=== PATIENT | male | born 1980 | race Caucasian/White ===

== ENCOUNTER 2020-08-22 11:34 | Emergency (ER) | payer OTHER, SELFPAY ==
--- NOTE | ~2020-08-22 | XR_ITS ---
EXAMINATION: XR chest 2V DATE: 08/22/2020 12:14 INDICATION: Congestion and wheezing. TECHNIQUE: Frontal and lateral views of the chest were obtained. COMPARISON: None. FINDINGS: The chest demonstrates clear lungs without pneumonia, pleural effusion, or pneumothorax. Th e heart size is normal. There is mild chronic anterior wedging of multiple thoracic vertebral bodies. IMPRESSION: 1. No acute cardiopulmonary disease. Reviewed, dictated and finalized at location A.
[2020-08-22 11:47] VITALS: BP 127/75; PULSE 85; RESP 16; TEMP 36.4; O2SAT 97
--- NOTE | 2020-08-22 11:57 | ED.URI ---
HPI - URI/Sore Throat General Chief Complaint: Upper Respiratory Infection Stated Complaint: Congestion,Headache Source: patient and RN notes reviewed Limitations: no limitations History of Present Illness HPI Narrative: The patient who is a smoker/reformed drinker with RAD, presents with upper respiratory symptoms. Patient states he has a 1 week history of myalgias with headache, loose stools diarrhea x5, congestion, froggy voice and cough with occasional wheeze. He is unvaccinated, no loss of taste/smell, vomiting, CP, rash, S OB no fever. Symptoms are mild, unrelieved with Related Data Home Medications Medication Instructions Recorded Confirmed albuterol sulfate 2 inh INHALATION DAILY 08/22/20 08/22/20 budesonide-formoterol [Symbicort] 1 inh INHALATION DAILY 08/22/20 08/22/20 lisinopril 40 mg PO DAILY 08/22/20 08/22/20 oxcarbazepine 300 mg PO DAILY 08/22/20 08/22/20 sertraline 50 mg PO DAILY 08/22/20 08/22/20 Allergies Allergy/AdvReac Type Severity Reaction Status Date / Time codeine Allergy Mild Itching Verified 08/22/20 11:36 Review of Systems Review of Systems: Narrative: General/Constitutional: No weight loss,fever Eyes: N0: Redness,discharge Ears/Nose/Throat: No: Epistaxis,ear discharge Respiratory: Denies: Hemoptysis Gastrointestinal: No Vomiting, Bleeding-rectal Skin: No Lumps, eruption Neurologic: No Focal Weakness,Sz Hematologic: Denies: Petechiae/Purpura Psychiatric: No: Suicida ideationl All Other Systems: Reviewed and Negative PMFSH Comments At time of signature, agree with nursing past medical, surgical, social and family history. There is no relevant family history pertinent to the presenting complaint Exam Narrative: Exam Narrative: General Appearance: Well appearing, Well nourished EYE: PERRLA, Conjunctiva clear Ears: Auditory canal normal, TM normal Nose: Rhinorrhea, Mucousal erythema Mouth/Throat: MM moist, Uvula midline, Pharyngeal erythema Neck: Supple, No adenopathy Respiratory: No respiratory distress, Breath sounds equal, scattered wheezing Cardiovascular: RRR, No JVD Musculoskeletal: Non tender, Normal strength Skin: Warm, Dry Neurological: A&O x3, CN II-XII intact Psychiatric: Normal mood, Normal affect Course Vital Signs Vital signs: Vital Signs Temperature 97.6 F 08/22/20 11:47 Pulse Rate 85 08/22/20 11:47 Respiratory Rate 16 08/22/20 11:47 Blood Pressure 127/75 08/22/20 11:47 Pulse Oximetry 97 08/22/20 11:47 Temperature 97.6 F 08/22/20 11:47 Pulse Rate 85 08/22/20 11:47 Respiratory Rate 16 08/22/20 11:47 Blood Pressure 127/75 08/22/20 11:47 Pulse Oximetry 97 08/22/20 11:47 MDM - URI/Sore Throat Lab Data Labs: Lab Results 08/22/20 Range/Units 11:53 POC SARS CoV-2 Ag Negative (Negative) Discharge Plan Discharge Clinical Impression: Influenza-like illness, Wheezing-associated respiratory infection (WARI) Patient Disposition: Home, Self-Care Condition: Stable Prescriptions: New prednisone 20 mg tablet 60 mg PO DAILY Qty: 9 RF: 0 azithromycin 250 mg tablet See Rx Instructions .ROUTE .COMPLEX Qty: 6 RF: 0 hydrocodone-acetaminophen 7.5-325 mg/15 mL solution 7.5 ml PO Q8H PRN (Reason: pain) Qty: 118 RF: 0 No Action oxcarbazepine 300 mg tablet 300 mg PO DAILY RF: 0 albuterol sulfate 90 mcg/actuation HFA aerosol inhaler 2 inh INHALATION DAILY RF: 0 lisinopril 40 mg tablet 40 mg PO DAILY RF: 0 sertraline 50 mg tablet 50 mg PO DAILY RF: 0 budesonide-formoterol [Symbicort] 160-4.5 mcg/actuation HFA aerosol inhaler 1 inh INHALATION DAILY RF: 0 Follow-up/Referrals: PHYSICIAN NOT ON STAFF,NONSTAFF [Primary Care Provider] - Stand Alone Forms: Work/School Release IP
== END 2020-08-22 12:37 | disposition home or self-care (01) ==
PROVIDERS: Emergency Provider Emergency Medicine
DX: J11.1 Influenza due to unidentified influenza virus with other respiratory manifestations (principal); J98.01 Acute bronchospasm; Z20.822 Contact with and (suspected) exposure to COVID-19; I10 Essential (primary) hypertension
CPT/HCPCS: 71046; 87426; 99213; C9803; G0463

== ENCOUNTER 2020-10-11 14:41 | Emergency (ER) | payer OTHER, SELFPAY ==
[2020-10-11 14:50] VITALS: BP 132/87; PULSE 86; RESP 16; TEMP 36.7; O2SAT 98
--- NOTE | 2020-10-11 15:14 | ED.EYEPROB ---
HPI - Eye Problem General Chief complaint: Eye Problems Stated complaint: right eye pain Time Seen by Provider: 10/11/20 14:58 Source: patient and RN notes reviewed Mode of arrival: ambulatory Limitations: no limitations History of Present Illness HPI Narrative: Patient presents today complaining of a foreign body to his right eye. Patient states he was using his weed ursula and felt something fly into his eye a few hours prior to arrival. He attempted to flush his eye with water, but feels he was unsuccessful. He is experiencing photophobia and pain. MD chief complaint: eye pain Related Data Home Medications Medication Instructions Recorded Confirmed albuterol sulfate 2 inh INHALATION DAILY 08/22/20 10/11/20 budesonide-formoterol [Symbicort] 1 inh INHALATION DAILY 08/22/20 10/11/20 lisinopril 40 mg PO DAILY 08/22/20 10/11/20 oxcarbazepine 300 mg PO DAILY 08/22/20 10/11/20 sertraline 50 mg PO DAILY 08/22/20 10/11/20 cetirizine [Zyrtec] 10 mg PO DAILY PRN 10/11/20 10/11/20 esomeprazole magnesium [Nexium] 40 mg PO DAILY 10/11/20 10/11/20 Allergies Allergy/AdvReac Type Severity Reaction Status Date / Time codeine Allergy Mild Itching Verified 10/11/20 14:59 Review of Systems Review of Systems: Narrative: CONSTITUTIONAL: Denies body aches, fever, chills, or sweats. EYES: Denies visual changes, redness, or discharge.+ Right eye photophobia, foreign body sensation ENT: Denies rhinorrhea, congestion, sore throat, or otalgia. CARDIOVASCULAR: Denies chest pain, palpitations, or edema. RESPIRATORY: Denies cough or dyspnea. GASTROINTESTINAL: Denies abdominal pain, nausea, vomiting, or diarrhea. GENITOURINARY: Denies dysuria or hematuria. SKIN: Denies rash, itching, or wounds. MUSCULOSKELETAL: Denies back pain, joint pain, or myalgia. NEUROLOGIC: Denies headache, numbness, tingling, or weakness. PSYCH: Denies depression or anxiety. [facility] Past Medical History Medical History (Updated 10/11/20 @ 15:51 by Sindhu Littlejohn, [facility], ) Asthma Bronchitis Diverticulitis Surgical History Surgical History (Updated 10/11/20 @ 15:51 by Sindhu Littlejohn, [employer], ) History of colon resection Comments At time of signature, I have reviewed and agree with nursing past medical, surgical, social and family history unless otherwise noted. Please see nursing chart for further information. There is no relevant family history pertinent to the presenting complaint Exam Narrative: Exam Narrative: GENERAL: Well-appearing, well-nourished, and in no acute distress. HEAD: Normocephalic, atraumatic. EYES: EOMI. PERRL. No redness or drainage. Conjunctivae normal. Right eye: Small corneal abrasion to the 3 o clock position of the iris. ENT: Mucous membranes pink and moist. NECK: Normal AROM. Supple. No lymphadenopathy. CHEST: No respiratory distress. EXTREMITIES: Normal range of motion. No edema. SKIN: Warm, dry, no rash. Capillary refill normal. Normal skin turgor. NEURO: No focal deficits. Alert and oriented x3. Gait steady. PSYCH: Normal affect. No signs of depression or anxiety. Course Vital Signs Vital signs: Vital Signs Temperature 98.1 F 10/11/20 14:50 Pulse Rate 86 10/11/20 14:50 Respiratory Rate 16 10/11/20 14:50 Blood Pressure 132/87 10/11/20 14:50 Pulse Oximetry 98 10/11/20 14:50 Temperature 98.1 F 10/11/20 14:50 Pulse Rate 86 10/11/20 14:50 Respiratory Rate 16 10/11/20 14:50 Blood Pressure 132/87 10/11/20 14:50 Pulse Oximetry 98 10/11/20 14:50 Reviewed. Pt has been instructed to follow up with his PCP regarding his elevated blood pressure today. Procedures Other Procedure Procedure 1: Other Procedure: Right eye was anesthetized with 1 drop of tetracaine and anesthesia was achieved. The eye was flushed with eye wash. Lid was inverted and examined. Moistened Qtip was used to sweep underneath the upper eyelid with 0 foreign bodies resulting. Cornea was dyed with fl
== END 2020-10-11 15:28 | disposition home or self-care (01) ==
PROVIDERS: Emergency Provider Nurse Practitioner
DX: S05.01XA Injury of conjunctiva and corneal abrasion without foreign body, right eye, initial encounter (principal); X58.XXXA Exposure to other specified factors, initial encounter; J45.909 Unspecified asthma, uncomplicated
CPT/HCPCS: 99213; A9270; G0463

== ENCOUNTER 2020-10-13 14:43 | Emergency (ER) | payer OTHER, SELFPAY ==
--- NOTE | ~2020-10-13 | XR_ITS ---
EXAMINATION: XR chest 2V EXAM DATE: 10/13/2020 15:01 INDICATION: Left-sided chest pain. TECHNIQUE: Frontal and lateral projections of the chest obtained and reviewed. Comparison is made to prior examination from 08/22/2020. FINDINGS: Small amount of ill-defined left midlung zone airspace disease suspected, possible developi ng infection. The lungs are otherwise clear. There are no pleural effusions. The cardiomediastinal silhouette is within normal limits. There is no pneumothorax suspected. The bones and soft tissues are unremarkable. There is no significant interval change. IMPRESSION: Small amount of left midlung zone opacity which could be developing infection. Reviewed, dictated and finalized at location B.
--- NOTE | 2020-10-13 14:45 | ECG_ITS ---
Measurements Intervals [place] Rate: 84 P: 57 LA: 128 QRS: 33 QRSD: 105 T: 47 QT: 360 QTc: 426 Interpretive Statements SINUS RHYTHM DELAYED PRECORDIAL R/S TRANSITION BORDERLINE ECG Electronically Signed On 10-13-2020 16:54:15 CDT by Darek Duncan D.O.
[2020-10-13 14:48] VITALS: BP 144/79; PULSE 88; RESP 16; TEMP 37.2; O2SAT 98
[2020-10-13 15:07] LABS: Basophils Percent Auto 0.7 % (0.2-1.2); Eosinophils Absolute Auto 0.2 K/mm3 (0-0.3); Eosinophils Percent Auto 2.6 % (0-4.4); Hematocrit 45.1 % (42.0-52.0); Hemoglobin 15.3 g/dL (14.0-18.0); Immature Granulocyte Absolute 0.03 K/mm3 (0.00-0.031); Immature Granulocyte Percent A 0.5 % (0-0.5); Lymphocytes Percent Auto 34.5 % (18.3-44.2); Mean Corpuscular HGB Conc 33.9 g/dl (32-36); Mean Corpuscular Hemoglobin 30.7 pg (26-34); Mean Corpuscular Volume 90.4 fl (80-100); Mean Platelet Volume 8.2 fl (7.4-10.4); Monocytes Absolute Auto 0.5 K/mm3 (0.1-0.6); Monocytes Percent Auto 9.2 % (2.6-8.5); Neutrophils Percent Auto 52.5 % (45.5-73.1); Platelet Count Result 272 k/mm3 (150-375); Red Blood Count 4.99 M/mm3 (4.6-6.20); White Blood Count 5.8 K/mm3 (4.5-10.0)
[2020-10-13 15:19] LABS: Anion Gap 7 mmol/L (8-16); Blood Urea Nitrogen 21 mg/dL (9-20); Calcium 9.1 mg/dL (8.4-10.2); Carbon Dioxide 25 mmol/L (22-30); Chloride 107 mmol/L (98-107); Estimated CRCL calculation 131 ml/min; Estimated Glomerular Filt Rate > 60; Glucose 109 mg/dL (65-110); Potassium 4.2 mmol/L (3.4-5.0); Sodium 139 mmol/L (137-145)
[2020-10-13 15:22] LABS: INR 0.9; Prothrombin Time 11.7 Seconds (11.1-14.7)
[2020-10-13 15:23] LABS: Partial Thromboplastin Time 29.2 SECONDS (22.3-36.8)
--- NOTE | 2020-10-13 15:24 | PC.NURSE ---
pt observed ripping off mask in waiting room while walking towards door. pt asked by this RN if they were leaving. pt stated, yep, this is fucking ridiculous . pt out of building with all belongings, steady gait, and not noted to be in any distress.
[2020-10-13 15:31] LABS: Troponin I < 0.012 ng/mL (0.000-0.034)
== END 2020-10-13 15:24 | disposition left against medical advice (07) ==
LOC: ANHED 16:42
PROVIDERS: Emergency Provider Emergency Medicine
DX: R07.9 Chest pain, unspecified (principal)
CPT/HCPCS: 36415; 71046; 80048; 84484; 85025; 85610; 85730; 93005; 99199